=== PATIENT | female | born 1965 | race Caucasian/White ===

== ENCOUNTER 2020-10-09 19:31 | Inpatient (IN) | payer OTHER, SELFPAY ==
[2020-10-10] MEDS: hydrOXYzine HCL 25 MG TABLET PO (00:08)
[2020-10-10] MEDS: Rivaroxaban 20 MG TABLET PO ×2 (00:51→20:58)
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
[2020-10-10 08:27] VITALS: BP 109/61; PULSE 71; TEMP 36.4
[2020-10-10 08:30] LABS: Cholesterol 190 mg/dL; HDL Cholesterol 33 mg/dL; LDL Cholesterol Calculated 115 mg/dl; Triglycerides 213 mg/dL
[2020-10-10 08:41] LABS: Estimated Average Glucose 163 mg/dL; Hemoglobin A1c % 7.3 %
[2020-10-10 08:49] LABS: Thyroid Stimulating Hormone 1.14 uIU/mL (0.32-4.0)
[2020-10-10 10:39] LABS: Folate 14.3 ng/mL (> or = 4.0); Vitamin B12 150 pg/mL (200-900)
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
[2020-10-10] MEDS: OXcarbazepine 300 MG TABLET PO ×2 (15:46→20:57)
[2020-10-10] MEDS: Cyanocobalamin (Vitamin B-12) 1,000 MCG TABLET 1000 MCG PO (15:46)
[2020-10-10 17:29] LABS: Glucose, Whole Blood 155 mg/dL (60-115)
[2020-10-10 20:44] VITALS: BP 110/66; PULSE 90; TEMP 36.6; O2SAT 95
--- NOTE | 2020-10-10 21:00 | PC.NURSE ---
refusing insulin at this time for poc 311 asking to repeat in 1 hour. will repeat as requested.
[2020-10-10 21:02] LABS: Glucose, Whole Blood 311 mg/dL (60-115)
[2020-10-10 22:34] LABS: Glucose, Whole Blood 220 mg/dL (60-115)
[2020-10-10] MEDS: Insulin Lispro 100 UNIT/ML 3 ML VIAL SUBCUT (22:36)
[2020-10-11 08:18] LABS: Glucose, Whole Blood 154 mg/dL (60-115)
[2020-10-11] MEDS: OXcarbazepine 300 MG TABLET PO ×2 (08:38→20:04)
[2020-10-11] MEDS: Cyanocobalamin (Vitamin B-12) 1,000 MCG TABLET 1000 MCG PO (08:38)
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
[2020-10-11 18:00] VITALS: BP 126/70; PULSE 76; RESP 18; TEMP 36.5; O2SAT 99
[2020-10-11] MEDS: Perphenazine 8 MG TABLET PO (20:03)
[2020-10-11] MEDS: Rivaroxaban 20 MG TABLET PO (20:04)
[2020-10-11 23:57] LABS: Glucose, Whole Blood 202 mg/dL (60-115)
[2020-10-12 06:00] VITALS: BP 104/57; PULSE 75; RESP 18; TEMP 36.3; O2SAT 96
--- NOTE | 2020-10-12 07:58 | P.PNPSI_ITS ---
Subjective Subjective Date of Service: 10/15/20 Reason For Visit: Unspecified bipolar & related disorder Subjective Notes: 3 Day Interim History: .Pt hyperverbal difficult to interrupt. Pt reports she is not being seen by who she is but instead a label. She does accept that she had bipolar but thinks that there is a possibility that she has been cured, by miracle of God. She states she has ignored God for too long and now he has a mission for her to help others. She asks this magnetic tape typewriter operator to discharge her but easily becomes irritable when she does not hear what she wants to hear about discharge today. Per nursing, pt has been visible hyperverbal, asking several times RNs, staff to discharge her. Medication Compliance: Intermittent Side effects from medications: No Review of Systems Review of Systems Gen: no fever Resp: no sob, no cough CV: no chest, no PINEDA, no leg edema GI: No n/v, no abd pain Neuro: No confusion Yes all other systems are reviewed and are negative Mental Status Exam Mental Status Exam Narrative: appropriately dressed and groomed. cooperative with interview. speech incr in rate, amount. decr in latency. nml prosody, incr loudness. thoughts tangential. affect full range, hyper-intense, labile. mood euphoric/irritable. no SI/HI/AVH. Diagnostics Vital Signs (24Hr): Vital Signs - 24 hr 10/14/20 11:48 10/14/20 18:00 Temperature 97.8 F 98.0 F Pulse Rate 76 80 Respiratory Rate 20 18 Blood Pressure 101/62 116/65 Pulse Oximetry 97 97 Labs Labs: Laboratory Results - last 48 hr 10/13/20 10/13/20 10/14/20 07:59 15:52 16:14 D-Dimer < 200 POC Glucose 169 H 159 H Medications Medications Current Medications Generic Name Dose Route Start Last Admin Trade Name Freq PRN Reason Stop Dose Admin Acetaminophen 650 mg 10/09/20 23:20 Acetaminophen 325 Mg Tablet PO Q6H PRN Headache/Pain Mild Scale (1-3) Al Hydroxide/Mg Hydroxide 30 ml 10/09/20 23:20 Magnesium Hydrox/Alum Hydrox 30 Ml Oral.Susp PO Q6H PRN Heartburn/Nausea Cyanocobalamin 1,000 mcg 10/10/20 14:30 10/14/20 09:43 Cyanocobalamin (Vitamin B-12) 1,000 Mcg Tablet PO 10/18/20 14:30 1,000 mcg DAILY PATRIC Administration Hydroxyzine HCl 25 mg 10/09/20 23:20 10/13/20 01:25 Hydroxyzine Hcl 25 Mg Tablet PO 25 mg Q6H PRN Administration Anxiety Insulin Human Lispro 0 unit 10/10/20 16:30 10/14/20 21:47 Insulin Lispro 100 Unit/Ml 3 Ml Vial SUBCUT Not Given [facility] Protocol Magnesium Hydroxide 30 ml 10/09/20 23:20 Milk Of Magnesia 30 Ml Oral.Susp PO DAILY PRN Constipation Nicotine 14 mg 10/09/20 23:20 Nicotine 14 Mg Patch.Td24 TRANSDERMA DAILY PRN nicotine cravings Nicotine Polacrilex 4 mg 10/09/20 23:20 Nicotine Polacrilex 2 Mg Gum BUCCAL Q2H PRN Nicotine Cravings Oxcarbazepine 300 mg 10/10/20 11:30 10/14/20 21:39 Oxcarbazepine 300 Mg Tablet PO 300 mg BID PATRIC Administration Perphenazine 8 mg 10/10/20 10:48 Perphenazine 8 Mg Tablet PO BEDTIME PRN insomnia Perphenazine 16 mg 10/13/20 21:00 10/14/20 21:41 Perphenazine 2 Mg Tablet PO 16 mg BEDTIME PATRIC Administration Rivaroxaban 20 mg 10/10/20 21:00 10/14/20 21:39 Rivaroxaban 20 Mg Tablet PO 20 mg BEDTIME PATRIC Administration Trazodone HCl 50 mg 10/09/20 23:20 Trazodone Hcl 50 Mg Tablet PO BEDTIME PRN Insomnia Allergies Allergies Allergy/AdvReac Type Severity Reaction Status Date / Time lithium AdvReac Swelling Verified 10/09/20 22:23 Assessment & Plan Assessment & Plan (1) Julieta: Status: Acute Code(s): F30.9 - Manic episode, unspecified Assessment and Plan: restarted trileptal 300 BID.? titrate as indicated. restarted neuroleptic.? using perphenazine 8 mg at HS rather than seroquel, pt's previous medication, to avoid weight gain. Assessment and Plan: per medical consult: 58/F with DM diet controlled, history of PE, morbid obesity in the past now admitted for julieta h/o PE--continue Xarelto type 2 diabetes--A1C over 7, no med, diabetes medication and can do sliding scale Psych problems: see above Greater than 50% of the session was spent on counseling and/or coordination of care Reason for contiued inpatient stay Substantial Risk for: inability to function
[2020-10-12 09:00] LABS: Glucose, Whole Blood 130 mg/dL (60-115)
[2020-10-12] MEDS: OXcarbazepine 300 MG TABLET PO ×2 (09:05→20:58)
[2020-10-12] MEDS: Cyanocobalamin (Vitamin B-12) 1,000 MCG TABLET 1000 MCG PO (09:05)
[2020-10-12 20:33] VITALS: BP 111/82; PULSE 83; TEMP 36.8; O2SAT 96
[2020-10-12] MEDS: Rivaroxaban 20 MG TABLET PO (20:58)
[2020-10-12] MEDS: Perphenazine 8 MG TABLET PO (20:58)
[2020-10-12 22:24] LABS: Glucose, Whole Blood 166 mg/dL (60-115)
[2020-10-13] MEDS: hydrOXYzine HCL 25 MG TABLET PO (01:25)
[2020-10-13 06:00] VITALS: BP 117/69; PULSE 70; RESP 18; TEMP 36.5; O2SAT 93
[2020-10-13] MEDS: OXcarbazepine 300 MG TABLET PO ×2 (08:02→20:36)
[2020-10-13] MEDS: Cyanocobalamin (Vitamin B-12) 1,000 MCG TABLET 1000 MCG PO (08:02)
--- NOTE | 2020-10-13 08:02 | HO.PSYCHPN ---
Subjective Subjective Date of Service: 10/15/20 Reason For Visit: Unspecified bipolar & related disorder Interim History: .Pt hyperverbal difficult to interrupt. Pt reports she is not being seen by who she is but instead a label. She does accept that she had bipolar but thinks that there is a possibility that she has been cured, by miracle of God. She states she has ignored God for too long and now he has a mission for her to help others. She asks this tech writer to discharge her but easily becomes irritable when she does not hear what she wants to hear about discharge today. Per nursing, pt has been visible hyperverbal, asking several times RNs, staff to discharge her. Review of Systems Review of Systems Gen: no fever Resp: no sob, no cough CV: no chest, no PINEDA, no leg edema GI: No n/v, no abd pain Neuro: No confusion Yes all other systems are reviewed and are negative Mental Status Exam Mental Status Exam Narrative: appropriately dressed and groomed. cooperative with interview. speech incr in rate, amount. decr in latency. nml prosody, incr loudness. thoughts tangential. affect full range, hyper-intense, labile. mood euphoric/irritable. no SI/HI/AVH. Diagnostics Vital Signs (24Hr): Vital Signs - 24 hr 10/14/20 11:48 10/14/20 18:00 10/15/20 08:01 Temperature 97.8 F 98.0 F Pulse Rate 76 80 86 Respiratory Rate 20 18 Blood Pressure 101/62 116/65 132/83 Pulse Oximetry 97 97 94 Labs Labs: Laboratory Results - last 48 hr 10/13/20 10/13/20 10/14/20 07:59 15:52 16:14 D-Dimer < 200 POC Glucose 169 H 159 H Medications Medications Current Medications Generic Name Dose Route Start Last Admin Trade Name Freq PRN Reason Stop Dose Admin Acetaminophen 650 mg 10/09/20 23:20 Acetaminophen 325 Mg Tablet PO Q6H PRN Headache/Pain Mild Scale (1-3) Al Hydroxide/Mg Hydroxide 30 ml 10/09/20 23:20 Magnesium Hydrox/Alum Hydrox 30 Ml Oral.Susp PO Q6H PRN Heartburn/Nausea Cyanocobalamin 1,000 mcg 10/10/20 14:30 10/14/20 09:43 Cyanocobalamin (Vitamin B-12) 1,000 Mcg Tablet PO 10/18/20 14:30 1,000 mcg DAILY PATRIC Administration Hydroxyzine HCl 25 mg 10/09/20 23:20 10/13/20 01:25 Hydroxyzine Hcl 25 Mg Tablet PO 25 mg Q6H PRN Administration Anxiety Insulin Human Lispro 0 unit 10/10/20 16:30 10/14/20 21:47 Insulin Lispro 100 Unit/Ml 3 Ml Vial SUBCUT Not Given QIDACHS [facility] Protocol Magnesium Hydroxide 30 ml 10/09/20 23:20 Milk Of Magnesia 30 Ml Oral.Susp PO DAILY PRN Constipation Nicotine 14 mg 10/09/20 23:20 Nicotine 14 Mg Patch.Td24 TRANSDERMA DAILY PRN nicotine cravings Nicotine Polacrilex 4 mg 10/09/20 23:20 Nicotine Polacrilex 2 Mg Gum BUCCAL Q2H PRN Nicotine Cravings Oxcarbazepine 300 mg 10/10/20 11:30 10/14/20 21:39 Oxcarbazepine 300 Mg Tablet PO 300 mg BID PATIRC Administration Perphenazine 8 mg 10/10/20 10:48 Perphenazine 8 Mg Tablet PO BEDTIME PRN insomnia Perphenazine 16 mg 10/13/20 21:00 10/14/20 21:41 Perphenazine 2 Mg Tablet PO 16 mg BEDTIME PATRIC Administration Rivaroxaban 20 mg 10/10/20 21:00 10/14/20 21:39 Rivaroxaban 20 Mg Tablet PO 20 mg BEDTIME PATRIC Administration Trazodone HCl 50 mg 10/09/20 23:20 Trazodone Hcl 50 Mg Tablet PO BEDTIME PRN Insomnia Allergies Allergies Allergy/AdvReac Type Severity Reaction Status Date / Time lithium AdvReac Swelling Verified 10/09/20 22:23 Assessment & Plan Assessment & Plan (1) Julieta: Status: Acute Code(s): F30.9 - Manic episode, unspecified Assessment and Plan: restarted trileptal 300 BID.? titrate as indicated. restarted neuroleptic.? using perphenazine 8 mg at HS rather than seroquel, pt's previous medication, to avoid weight gain. Assessment and Plan: per medical consult: 58/F with DM diet controlled, history of PE, morbid obesity in the past now admitted for julieta h/o PE--continue Xarelto type 2 diabetes--A1C over 7, no med, diabetes medication and can do sliding scale Psych problems: see above Greater than 50% of the session was spent on counseling and/or coordination of care Reason for contiued inpatient stay Substantial Risk for: inability to function
[2020-10-13 08:03] LABS: Glucose, Whole Blood 169 mg/dL (60-115)
[2020-10-13 16:32] LABS: D Dimer < 200 NG/ML
[2020-10-13 20:27] VITALS: BP 128/76; PULSE 89; RESP 18; TEMP 36.6; O2SAT 97
[2020-10-13] MEDS: Rivaroxaban 20 MG TABLET PO (20:36)
[2020-10-13] MEDS: Perphenazine 2 MG TABLET 16 MG PO (20:36)
--- NOTE | 2020-10-14 08:03 | HO.PSYCHPN ---
Subjective Subjective Date of Service: 10/15/20 Reason For Visit: Unspecified bipolar & related disorder Interim History: Pt continues to present as hyperverbal difficult to interrupt. Pt reports she is not being seen by who she is but instead a label. She does accept that she had bipolar but thinks that there is a possibility that she has been cured, by miracle of God. She states she has ignored God for too long and now he has a mission for her to help others. She asks this securities underwriter to discharge her but easily becomes irritable when she does not hear what she wants to hear about discharge today. She did agree to increase perphenazine to 16mg po qhs. Per nursing, pt has been visible hyperverbal, asking several times RNs, staff to discharge her. Review of Systems Review of Systems Gen: no fever Resp: no sob, no cough CV: no chest, no PINEDA, no leg edema GI: No n/v, no abd pain Neuro: No confusion Yes all other systems are reviewed and are negative Mental Status Exam Mental Status Exam Narrative: appropriately dressed and groomed. cooperative with interview. speech incr in rate, amount. decr in latency. nml prosody, incr loudness. thoughts tangential. affect full range, hyper-intense, labile. mood euphoric/irritable. no SI/HI/AVH. Diagnostics Vital Signs (24Hr): Vital Signs - 24 hr 10/14/20 11:48 10/14/20 18:00 10/15/20 08:01 Temperature 97.8 F 98.0 F Pulse Rate 76 80 86 Respiratory Rate 20 18 Blood Pressure 101/62 116/65 132/83 Pulse Oximetry 97 97 94 Labs Labs: Laboratory Results - last 48 hr 10/13/20 10/13/20 10/14/20 07:59 15:52 16:14 D-Dimer < 200 POC Glucose 169 H 159 H Medications Medications Current Medications Generic Name Dose Route Start Last Admin Trade Name Freq PRN Reason Stop Dose Admin Acetaminophen 650 mg 10/09/20 23:20 Acetaminophen 325 Mg Tablet PO Q6H PRN Headache/Pain Mild Scale (1-3) Al Hydroxide/Mg Hydroxide 30 ml 10/09/20 23:20 Magnesium Hydrox/Alum Hydrox 30 Ml Oral.Susp PO Q6H PRN Heartburn/Nausea Cyanocobalamin 1,000 mcg 10/10/20 14:30 10/14/20 09:43 Cyanocobalamin (Vitamin B-12) 1,000 Mcg Tablet PO 10/18/20 14:30 1,000 mcg DAILY PATRIC Administration Hydroxyzine HCl 25 mg 10/09/20 23:20 10/13/20 01:25 Hydroxyzine Hcl 25 Mg Tablet PO 25 mg Q6H PRN Administration Anxiety Insulin Human Lispro 0 unit 10/10/20 16:30 10/14/20 21:47 Insulin Lispro 100 Unit/Ml 3 Ml Vial SUBCUT Not Given QIDACHS [facility] Protocol Magnesium Hydroxide 30 ml 10/09/20 23:20 Milk Of Magnesia 30 Ml Oral.Susp PO DAILY PRN Constipation Nicotine 14 mg 10/09/20 23:20 Nicotine 14 Mg Patch.Td24 TRANSDERMA DAILY PRN nicotine cravings Nicotine Polacrilex 4 mg 10/09/20 23:20 Nicotine Polacrilex 2 Mg Gum BUCCAL Q2H PRN Nicotine Cravings Oxcarbazepine 300 mg 10/10/20 11:30 10/14/20 21:39 Oxcarbazepine 300 Mg Tablet PO 300 mg BID PATRIC Administration Perphenazine 8 mg 10/10/20 10:48 Perphenazine 8 Mg Tablet PO BEDTIME PRN insomnia Perphenazine 16 mg 10/13/20 21:00 10/14/20 21:41 Perphenazine 2 Mg Tablet PO 16 mg BEDTIME PATRIC Administration Rivaroxaban 20 mg 10/10/20 21:00 10/14/20 21:39 Rivaroxaban 20 Mg Tablet PO 20 mg BEDTIME PATRIC Administration Trazodone HCl 50 mg 10/09/20 23:20 Trazodone Hcl 50 Mg Tablet PO BEDTIME PRN Insomnia Allergies Allergies Allergy/AdvReac Type Severity Reaction Status Date / Time lithium AdvReac Swelling Verified 10/09/20 22:23 Assessment & Plan Assessment & Plan (1) Julieta: Status: Acute Code(s): F30.9 - Manic episode, unspecified Assessment and Plan: restarted trileptal 300 BID.? titrate as indicated. restarted neuroleptic.? PLAN: Increase perphenazine 16 mg at HS rather than seroquel, pt's previous medication, to avoid weight gain. Assessment and Plan: per medical consult: 58/F with DM diet controlled, history of PE, morbid obesity in the past now admitted for julieta h/o PE--continue Xarelto type 2 diabetes--A1C over 7, no med, diabetes medication and can do sliding scale Psych problems: see above Greater than 50% of the session was spent on counseling and/or coordination of care Reason for contiued inpatient stay Substantial Risk for: inability to function
[2020-10-14] MEDS: OXcarbazepine 300 MG TABLET PO ×2 (09:43→21:39)
[2020-10-14] MEDS: Cyanocobalamin (Vitamin B-12) 1,000 MCG TABLET 1000 MCG PO (09:43)
[2020-10-14 11:48] VITALS: BP 101/62; PULSE 76; RESP 20; TEMP 36.6; O2SAT 97
[2020-10-14 17:06] LABS: Glucose, Whole Blood 159 mg/dL (60-115)
[2020-10-14 18:00] VITALS: BP 116/65; PULSE 80; RESP 18; TEMP 36.7; O2SAT 97
[2020-10-14] MEDS: Rivaroxaban 20 MG TABLET PO (21:39)
[2020-10-14] MEDS: Perphenazine 2 MG TABLET 16 MG PO (21:41)
[2020-10-15 08:01] VITALS: BP 132/83; PULSE 86; O2SAT 94
[2020-10-15] MEDS: Cyanocobalamin (Vitamin B-12) 1,000 MCG TABLET 1000 MCG PO (08:17)
[2020-10-15] MEDS: OXcarbazepine 300 MG TABLET PO (08:17)
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
== END 2020-10-15 12:00 | disposition home or self-care (01) | DRG 753 ==
PROVIDERS: Social Worker; Admitting Provider Psychiatry & Neurology Psychiatry; Visit Provider Psychiatry & Neurology Psychiatry
DX: F31.9 Bipolar disorder, unspecified (principal); E11.9 Type 2 diabetes mellitus without complications; Z86.711 Personal history of pulmonary embolism; Z79.01 Long term (current) use of anticoagulants; Z79.899 Other long term (current) drug therapy
CPT/HCPCS: 36415; 80061; 82607; 82746; 82947; 83036; 84443; 85379